=== PATIENT | female | born 1960 | race Caucasian/White ===

== ENCOUNTER → 2019-12-26 | Outpatient (CLI) | payer OTHER ==
[2019-12-26 13:24] VITALS: BP 158/73; PULSE 60; RESP 16; TEMP 97.9; BMI 30.5
--- NOTE | 2019-12-26 14:10 | P.HPBAR ---
Bariatric H&P - History & Physicial H&P Date: 12/26/19 History & Physicial: Visit/CC: needs fluid removed from lap band for surgery Patient initial contact: Initial weight: Initial weight in pounds: Height: 5 ft 5.5 in Initial BMI: Last weight: Current weight: 84.55 kg Current weight in pounds: 186.40 Current BMI: 30.5 [place] body weight (based on NIH guidelines): 57.833 kg Excess body weight loss: The patient is a 59 year-old F who presents for Bariatric Assessment. Patient p resents today for lab band follow. She is having the surgery. She is requesting fluid removed from her band. Past Medical History Past Medical History: Cancer, Hypertension Additional Past Medical History / Comment(s): Right breast lumpectomy, arthritis, lymphadema (frequent infections 2 to 3x year) History of Any Multi-Drug Resistant Organisms: None Reported Past Surgical History: Bariatric Surgery, Joint Replacement, Tubal Ligation Additional Past Surgical History / Comment(s): toe surgery, hammer toe rt foot 2015, Rt knee laproscopic, lap band, amputation of right big and second toe, right total knee replacement scheduled Feb 2020 Past Anesthesia/Blood Transfusion Reactions: Motion Sickness, Postoperative Nausea & Vomiting (PONV) Past Psychological History: No Psychological Hx Reported Smoking Status: Never smoker Past Alcohol Use History: None Reported Past Drug Use History: None Reported - Past Family History Father Additional Family Medical History / Comment(s): from heart disease Mother Family Medical History: No Reported History Sister(s) Family Medical History: Cancer Additional Family Medical History / Comment(s): cancer hx in 3 siblings Surgical - Exam Vital Signs Temp Pulse Resp BP Pulse Ox 97.9 F 60 16 158/73 98 12/26/19 13:20 12/26/19 13:20 12/26/19 13:20 12/26/19 13:20 12/26/19 13:20 - General well developed, well nourished, no distress - Eyes PERRL - ENT normal pinna - Neck no masses - Respiratory normal expansion - Cardiovascular Rhythm: regular - Abdomen Abdomen: soft, non tender Bariatric Assessment & Plan Plan: Patient's lap band was adjusted she had 2 mL removal LAP-BAND. She has 3 mL in the band. She'll follow-up in 4 weeks. Bariatric Checklist Checklist: Plan: Checklist: EGD: 1. Hiatal hernia: 2. H. Pylori: HgbA1c: Vitamin D: Smoking: Never smoker Primary care physician referral: Nolan Love Psychiatry clearance: Cardiology clearance: Sleep study: Diet journal: VTE risk score: VTE risk level: Rehab needs at discharge:
== END | disposition home or self-care (01) ==
LOC: BARWHC3 12:44
PROVIDERS: ATTEND Surgery
DX: Z46.51 Encounter for fitting and adjustment of gastric lap band (principal); Z98.84 Bariatric surgery status; Z98.51 Tubal ligation status
CPT/HCPCS: 99212